=== PATIENT | female | born 1960 | race Caucasian/White ===

== ENCOUNTER → 2017-05-02 | Outpatient (CLI) | payer OTHER ==
[~2017-05-02] MED LIST: CYCLOBENZAPRINE5 M3 PO; Fioricet 325 MG1 TAB PO; KENALOG 0.1%80 GM T; LEVOTHROID SO0.05 MG PO; METFORMIN500 MG PO; OMEPRAZOLE20 M2 PO; OMEPRAZOLE40 MG PO; PIOGLITAZONE HC15 MG PO; PRILOSEC40 M1 PO; SERTRALINE HYDR25 MG PO; VITAMIN D50000 I3 PO; XANAX0.25 MG PO; ZOVIRAX400 MG PO
== END | disposition home or self-care (01) ==
LOC: MAMMO 04-05 14:20
DX: Z12.31 Encounter for screening mammogram for malignant neoplasm of breast (principal)

== ENCOUNTER → 2017-09-18 | Outpatient (CLI) | payer OTHER | END | disposition home or self-care (01) | LOC: US 10:30 | DX: M46.02 Spinal enthesopathy, cervical region (principal); M48.02 Spinal stenosis, cervical region; G24.9 Dystonia, unspecified; R10.84 Generalized abdominal pain ==

== ENCOUNTER → 2017-09-25 | Outpatient (CLI) | payer OTHER | END | disposition home or self-care (01) | LOC: NM 07:00 | DX: K82.8 Other specified diseases of gallbladder (principal) ==

== ENCOUNTER 2018-03-19 14:50 | Inpatient (IN) | payer OTHER ==
[~2018-03-19] VITALS: Ht 157.4 cm; Wt 56.3 kg
--- NOTE | ~2018-03-19 | ST ---
[place], [place] EXERCISE STRESS TEST REPORT [id number] UN[facility] #: [id number] ROOM: 521 DOCTOR: TEENA MATTHEW MD BIRTHDATE: [birth year] DOS: 03/20/2018 LEXISCAN STRESS EKG REPORT REFERRING PHYSICIAN: Dr. Kay. INDICATION: Chest pain. The patient underwent standard protocol Lexiscan stress EKG. The patient's baseline EKG is normal sinus with nonspecific ST-T-wave changes. Baseline heart rate 86 with blood pressure 110/58. The patient's peak heart rate was 117 with a blood pressure 110/54. The patient had no chest pain, no EKG changes and no arrhythmias. SUMMARY OF FINDINGS: Unremarkable Lexiscan stress EKG. Please see separate report for perfusion scan imaging or follow those results. TEENA MATTHEW MD CM:STRESS:EXERCISE STRESS TEST REPORT [id number] TEENA MATTHEW MD
--- NOTE | ~2018-03-19 | EKG ---
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
--- NOTE | ~2018-03-19 | WRIGHTHP ---
[place], [place] PATIENT HISTORY AND PHYSICAL EXAM NAME: ELI GERARDO UNIT #: [id number] ROOM: 521 DOCTOR: TOMY ALVESRL J BIRTHDATE: [birth year] DOS: 03/19/2018 HISTORY OF PRESENT ILLNESS: The patient with a past medical history of: 1. Benign essential hypertension. 2. Major depression, recurrent. 3. Postmenopausal osteoporosis. 4. Hypothyroidism. 5. GERD and esophagitis. 6. Mixed hyperlipidemia. 7. Type 2 diabetes mellitus. The patient presented to the Emergency Department at [facility] with complaints of recurrent chest pains and she was admitted and taken for a cardiac stress test by Dr. Acharya, which came back as normal and she is doing well now. REVIEW OF SYSTEMS: LUNGS: No increasing shortness of breath. GASTROINTESTINAL: No nausea, vomiting, diarrhea or constipation. CARDIOVASCULAR: Recurrent chest pains, now resolved. FAMILY HISTORY: Noncontributory. HOME MEDICATIONS: Pepcid, Zoloft, Actos, metformin, omeprazole. PHYSICAL EXAMINATION: GENERAL: Alert, oriented x 3, in no visible distress except for being anxious. VITAL SIGNS: Blood pressure 123/64, heart rate 84 beats per minute, breathing 20 times per minute, temperature 99.3 degrees Fahrenheit. IMPRESSION: 1. The patient with chest pains from uncertain etiology. Cardiac stress test normal. The patient cleared by Cardiology to be discharged to home. 2. The patient with ingrown toenail, left big toe, to be followed by Podiatry as an outpatient. 3. Laboratory data: Negative cardiac enzymes. Normal cardiac stress test. The patient to be discharged to home to follow up with PCP this week. 4. Type 2 diabetes mellitus. Blood sugar is to be monitored and treated. Her home medications including metformin and Actos continued. 5. Postmenopausal osteoporosis, treated with Fosamax, calcium and vitamin D, which were continued. 6. Gastroesophageal reflux disease and esophagitis, treated with omeprazole, famotidine. 7. Generalized anxiety disorder, major depression, recurrent, treated with Zoloft. 8. Hyperlipidemia, treated with simvastatin, which is being continued. [place], [place] PATIENT HISTORY AND PHYSICAL EXAM NAME: ELI GERARDO UNIT #: [id number] ROOM: 521 DOCTOR: RL UHITRON MD BIRTHDATE: [birth year] RL HUITRON MD CM:HISPHYS:PATIENT HISTORY AND PHYSICAL EXAMINATION 1759 1814 RL HUITRON MD 03/21/18 0140 interface
--- NOTE | ~2018-03-19 | EKG ---
[place], [place] ELECTROCARDIOGRAM REPORT NAME: ELI GERARDO UNIT #: [id number] ROOM: 521 DOCTOR: VAN DRAFT REPORT BIRTHDATE: [birth year] [facility] Test Date: 2018-03-19 Test Time: 14:53:23 Pat Name: ELI GERARDO Department: Room: 521 Gender: F [place] Hand: Sherry Bernal : 1960 Requested By: RYANN MCCRACKEN Order Number: [id number] Reading MD: Evaristo Acharya MD Measurements Intervals [place] Rate: 81 P: 41 PA: 161 QRS: 33 QRSD: 90 T: 47 QT: 377 QTc: 438 Interpretive Statements Sinus rhythm Minimal ST depression, lateral leads No previous ECG available for comparison Electronically Signed On 03-23-2018 12:04:51 PDT by Evaristo Acharya MD CM:EKGRPT:ELECTROCARDIOGRAM REPORT 1453 1204 RYANN ARAUJO DRAFT REPORT RYANN MCCRACKEN MD
--- NOTE | ~2018-03-19 | EKG ---
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
[2018-03-19 14:51] VITALS: BP 170/69
[2018-03-19 15:09] LABS: BASO % 0.4 % (0.0-1.0); EOS # 0.2 10*3/uL (0.0-0.4); EOS % 2.2 % (1.0-4.0); HEMOGLOBIN 8.1 g/dl (12.0-16.0); LYMPH # 1.8 10*3/uL (1.3-4.4); LYMPH % 26.3 % (27.0-41.0); MEAN CELL VOLUME 76.9 fl (81.0-99.0); MEAN CORPUSCULAR HGB CONC 31.2 g/dl (33.0-37.0); MEAN PLATELET VOLUME 13.3 fl (9.6-12.3); MONO # 0.6 10*3/uL (0.1-1.0); MONO % 8.6 % (3.0-9.0); NEUT # 4.2 10*3/uL (2.3-7.9); NEUT % 62.4 % (47.0-73.0); PLATELET COUNT AUTOMATED 255 10*3/uL (130-400); RED BLOOD COUNT 3.38 10*6/uL (4.10-5.10); RED CELL DISTRI WIDTH 14.8 % (0-14.5); WHITE BLOOD COUNT 6.8 10*3/uL (4.8-10.8)
[2018-03-19 15:17] LABS: ACT PARTIAL THROMBO TIME 22.1 SECONDS (20.8-31.5)
[2018-03-19 15:24] LABS: ALBUMIN 3.7 gm/dl (3.1-4.5); ALKALINE PHOSPHATASE 72 U/L (45-117); BUN 10 mg/dl (7-24); CHLORIDE 109 mmol/L (98-107); POTASSIUM 3.7 mmol/L (3.5-5.1); SGOT/AST 12 IU/L (3-35); SGPT/ALT 14 U/L (12-78); SODIUM 141 mmol/L (136-145); TOTAL PROTEIN 7.9 gm/dL (6.4-8.2)
[2018-03-19 15:25] LABS: TROPONIN I < 0.015 ng/ml (<0.045)
[2018-03-19 15:29] VITALS: BP 132/68
[2018-03-19 16:01] VITALS: BP 132/64
[2018-03-19 18:27] VITALS: BP 151/59
[2018-03-19] MEDS ORDERED: LISINOPRIL2.5 MG PO (18:44)
[2018-03-19] MEDS ORDERED: OMEPRAZOLE D/R20 MG PO (18:45)
[2018-03-19] MEDS ORDERED: SERTRALINE HYD100 MG PO (18:49)
[2018-03-19] MEDS ORDERED: ALENDRONATE SOD70 M1 PO (18:49)
[2018-03-19] MEDS ORDERED: ALOGLIPTIN25 MG PO (18:50)
[2018-03-19] MEDS ORDERED: CALCIUM CARBON600 M4 PO (18:51)
[2018-03-19] MEDS ORDERED: OYSTER SHELL C500 M4 PO (18:52)
[2018-03-19] MEDS ORDERED: VITAMIN D350000 UNIT PO (18:53)
[2018-03-19 18:54] VITALS: BP 151/59
[2018-03-19] MEDS ORDERED: LEVOTHYROXINE50 MCG PO (18:54)
[2018-03-19] MEDS ORDERED: ZANTAC 7575 M1 PO (18:55)
[2018-03-19] MEDS ORDERED: SIMVASTATIN5 MG PO (18:56)
[2018-03-20] VITALS: BP 119/62
[2018-03-20 12:00] VITALS: BP 114/65
[2018-03-20 13:15] VITALS: BP 130/63
[2018-03-20 16:00] VITALS: BP 123/64
[2018-04-10] MEDS ORDERED: ZANTAC 300300 MG PO (10:31)
== END 2018-03-20 18:30 | disposition home or self-care (01) | DRG 313 ==
LOC: ED 14:50 → 5E 17:50 → EDHOLD 17:50 → 5E 18:13
PROVIDERS: Emergency Medicine
PROC: 4A02XM4 Measurement of Cardiac Total Activity, External Approach (ICD-10-PCS; principal; 2018-03-20)
PROC: 3E073KZ Introduction of Other Diagnostic Substance into Coronary Artery, Percutaneous Approach (ICD-10-PCS; 2018-03-20)
DX: R07.9 Chest pain, unspecified (principal); F33.9 Major depressive disorder, recurrent, unspecified; E11.9 Type 2 diabetes mellitus without complications; I10 Essential (primary) hypertension; E78.00 Pure hypercholesterolemia, unspecified; F41.9 Anxiety disorder, unspecified; E03.9 Hypothyroidism, unspecified; E78.2 Mixed hyperlipidemia; M81.0 Age-related osteoporosis without current pathological fracture; K21.0 Gastro-esophageal reflux disease with esophagitis; F41.1 Generalized anxiety disorder; L60.0 Ingrowing nail; S91.209A Unspecified open wound of unspecified toe(s) with damage to nail, initial encounter; X58.XXXA Exposure to other specified factors, initial encounter; Z88.0 Allergy status to penicillin; Z79.899 Other long term (current) drug therapy; Z90.710 Acquired absence of both cervix and uterus; Z98.51 Tubal ligation status; Z82.49 Family history of ischemic heart disease and other diseases of the circulatory system; Z80.8 Family history of malignant neoplasm of other organs or systems; Y93.89 Activity, other specified; Y92.89 Other specified places as the place of occurrence of the external cause

== ENCOUNTER → 2018-06-06 | Day surgery (SDC) | payer OTHER ==
[~2018-06-06] VITALS: Ht 157.4 cm; Wt 55.8 kg
[~2018-06-06] MED LIST changes: +ALENDRONATE SOD70 M1 PO; +ALOGLIPTIN25 MG PO; +CALCIUM CARBON600 M4 PO; +LEVOTHYROXINE50 MCG PO; +LISINOPRIL2.5 MG PO; +OMEPRAZOLE D/R20 MG PO; +OYSTER SHELL C500 M4 PO; +SERTRALINE HYD100 MG PO; +SIMVASTATIN5 MG PO; +VITAMIN D350000 UNIT PO; +ZANTAC 300300 MG PO; +ZANTAC 7575 M1 PO
--- NOTE | ~2018-06-06 | O ---
[place], [place] OPERATIVE NOTE NAME: ELI GERARDO UNIT #: [id number] ROOM: DOCTOR: ADRIENNE HAYNES MD BIRTHDATE: [birth year] DOS: 06/06/2018 GASTROENDOSCOPIC REPORT INDICATION: This is a 58-year-old patient who presented with anemia, undergoing investigation. ALLERGIES: PENICILLIN. FAMILY HISTORY: Noncontributory. PAST SURGICAL HISTORY: Hysterectomy and right knee. PAST MEDICAL HISTORY: Hypothyroidism, hypertension, diabetes mellitus, and hyperlipidemia. SOCIAL HISTORY: Nonsmoker, nonalcohol consumer. PROCEDURE: Today's procedure part of investigation is EGD and colonoscopy. PREMEDICATION: Propofol. SCOPE: Olympus forward-viewing gastroscope Q10 video. REPORT: After putting the patient in the left lateral position and application of lubricant to the scope, the scope was introduced. Thereafter, under direct visualization, advanced through the length of esophagus without difficulty. Esophagus, cervical, thoracic distal within normal limits. Hiatal hernia was noticed, this approximately 2 cm. Gastric pouch was entered. Gastritis of mild degree was seen. Antral biopsy obtained. Duodenal bulb, second and third part within normal limits. GI reflexion of the scope reveals cardia to be benign. Air was suctioned out. The patient was extubated, tolerated the procedure well. IMPRESSION: Gastritis, status post antral biopsy, small hiatal hernia 2 cm. PLAN AND DISCUSSION: This upper GI tract was not defining the source of blood loss and anemia in this patient. I am going to proceed with colonoscopic examination today. INDICATION: The patient has presented with anemia, undergoing investigation. Her upper endoscopy was associated with gastritis, small hiatal hernia. PROCEDURE: Today's procedure part of investigation is colonoscopy. PREMEDICATION: Propofol. SCOPE: Olympus forward-viewing colonoscope 10L video. REPORT: After putting the patient in left lateral position and application of [place], [place] OPERATIVE NOTE NAME: ELI GERARDO Khalida UNIT #: [id number] ROOM: DOCTOR: CONCHIS HAYNES MD BIRTHDATE: [birth year] lubricant to the scope, the scope was introduced. Thereafter, under direct visualization, advanced through the length of colon without difficulty. Base of the cecum explored, appendiceal orifice identified, ileocecal valve was defined and photographed. Air was suctioned out. The patient gradually extubated, tolerated the procedure well. IMPRESSION: Normal colonoscopic examination. PLAN AND DISCUSSION: Source of anemia remains to be biggest at this time. Workup still in progress as outpatient for anemia and fortunately the patient is not on antiplatelet and anticoagulants. Thank you very much indeed for your kind referral. ADRIENNE HAYNES MD CM:OPRECORD:OPERATIVE NOTE 1020 BLADE HAYNES MD 06/06/18 1021 interface
[2018-06-06 07:20] VITALS: BP 122/70
[2018-06-06 08:57] VITALS: BP 110/62
[2018-06-06 09:12] VITALS: BP 115/56
[2018-06-06 09:27] VITALS: BP 115/42
== END | disposition home or self-care (01) ==
LOC: SDC 06-01 10:15
DX: K29.50 Unspecified chronic gastritis without bleeding (principal); K44.9 Diaphragmatic hernia without obstruction or gangrene; E03.9 Hypothyroidism, unspecified; I10 Essential (primary) hypertension; E11.9 Type 2 diabetes mellitus without complications; E78.5 Hyperlipidemia, unspecified; F41.9 Anxiety disorder, unspecified; F17.210 Nicotine dependence, cigarettes, uncomplicated; Z90.710 Acquired absence of both cervix and uterus; Z98.890 Other specified postprocedural states; Z88.0 Allergy status to penicillin; Z79.899 Other long term (current) drug therapy; Z82.49 Family history of ischemic heart disease and other diseases of the circulatory system; Z82.0 Family history of epilepsy and other diseases of the nervous system

== ENCOUNTER → 2019-06-12 | Outpatient (CLI) | payer OTHER | END | disposition home or self-care (01) | LOC: CARD 07:26 | DX: I08.1 Rheumatic disorders of both mitral and tricuspid valves (principal); R10.9 Unspecified abdominal pain; M47.816 Spondylosis without myelopathy or radiculopathy, lumbar region; Z90.710 Acquired absence of both cervix and uterus ==

== ENCOUNTER → 2019-06-19 | Outpatient (CLI) | payer OTHER ==
[2019-06-19 12:06] LABS: BASO # 0.1 10*3/uL (0.0-0.1); BASO % 0.8 % (0.0-1.0); EOS # 0.2 10*3/uL (0.0-0.4); EOS % 2.3 % (1.0-4.0); HEMATOCRIT 39.7 % (37.0-47.0); LYMPH # 2.1 10*3/uL (1.3-4.4); LYMPH % 31.9 % (27.0-41.0); MEAN CELL VOLUME 90.6 fl (81.0-99.0); MEAN CORPUSCULAR HGB 29.7 pg (27.0-31.0); MEAN CORPUSCULAR HGB CONC 32.7 g/dl (33.0-37.0); MEAN PLATELET VOLUME 11.7 fl (9.6-12.3); MONO # 0.4 10*3/uL (0.1-1.0); MONO % 6.4 % (3.0-9.0); NEUT # 3.9 10*3/uL (2.3-7.9); NEUT % 58.1 % (47.0-73.0); PLATELET COUNT AUTOMATED 190 10*3/uL (130-400); RED BLOOD COUNT 4.38 10*6/uL (4.10-5.10); WHITE BLOOD COUNT 6.6 10*3/uL (4.8-10.8)
[2019-06-19 12:33] LABS: ALBUMIN 3.9 gm/dl (3.1-4.5); BUN 11 mg/dl (7-24); CHLORIDE 110 mmol/L (98-107); CHOLESTEROL 225 mg/dL (<200); CREATININE 0.76 mg/dL (0.55-1.02); POTASSIUM 4.3 mmol/L (3.5-5.1); SGOT/AST 9 IU/L (3-35); SGPT/ALT 20 U/L (12-78); SODIUM 141 mmol/L (136-145); TRIGLYCERIDES 275 mg/dl (<150); VLDL CHOLESTEROL 55 mg/dL (6-40)
[2019-06-19 12:40] LABS: ALKALINE PHOSPHATASE 78 U/L (45-117); FREE T4 0.97 ng/dl (0.76-1.46); HDL CHOLESTEROL 51 mg/dl (40-60); LDL CHOLESTEROL 119 mg/dL (9-159); TOTAL PROTEIN 7.6 gm/dL (6.4-8.2)
[2019-06-19 12:58] LABS: VITAMIN D, 25-HYDROXY 26.5 ng/mL (30-100)
== END | disposition home or self-care (01) ==
LOC: LAB 09:45
PROVIDERS: Internal Medicine
DX: E11.9 Type 2 diabetes mellitus without complications (principal); I10 Essential (primary) hypertension; E55.9 Vitamin D deficiency, unspecified; D51.9 Vitamin B12 deficiency anemia, unspecified; D52.9 Folate deficiency anemia, unspecified; E03.9 Hypothyroidism, unspecified; R53.81 Other malaise; R79.89 Other specified abnormal findings of blood chemistry

== ENCOUNTER → 2019-10-10 | Outpatient (CLI) | payer OTHER | END | disposition home or self-care (01) | LOC: RAD 10:37 | DX: M76.892 Other specified enthesopathies of left lower limb, excluding foot (principal); M25.561 Pain in right knee ==

== ENCOUNTER → 2020-02-27 | Outpatient (CLI) | payer OTHER ==
[2020-02-27 10:32] LABS: BASO % 0.6 % (0.0-1.0); EOS # 0.1 10*3/uL (0.0-0.4); HEMATOCRIT 35.2 % (37.0-47.0); LYMPH # 1.5 10*3/uL (1.3-4.4); MEAN CELL VOLUME 90.7 fl (81.0-99.0); MEAN CORPUSCULAR HGB 30.4 pg (27.0-31.0); MEAN CORPUSCULAR HGB CONC 33.5 g/dl (33.0-37.0); MEAN PLATELET VOLUME 12.4 fl (9.6-12.3); MONO # 0.4 10*3/uL (0.1-1.0); MONO % 8.6 % (3.0-9.0); NEUT % 59.4 % (47.0-73.0); PLATELET COUNT AUTOMATED 188 10*3/uL (130-400); RED BLOOD COUNT 3.88 10*6/uL (4.10-5.10); WHITE BLOOD COUNT 5.1 10*3/uL (4.8-10.8)
[2020-02-27 10:53] LABS: ALBUMIN 3.9 gm/dl (3.1-4.5); ALKALINE PHOSPHATASE 58 U/L (45-117); BUN 10 mg/dl (7-24); CHLORIDE 110 mmol/L (98-107); CHOLESTEROL 194 mg/dL (<200); CREATININE 0.63 mg/dL (0.55-1.02); FREE T4 0.85 ng/dl (0.76-1.46); HDL CHOLESTEROL 49 mg/dl (40-60); LDL CHOLESTEROL 109 mg/dL (9-159); POTASSIUM 3.6 mmol/L (3.5-5.1); SGOT/AST 10 IU/L (3-35); SGPT/ALT 15 U/L (12-78); SODIUM 142 mmol/L (136-145); TRIGLYCERIDES 181 mg/dl (<150); VLDL CHOLESTEROL 36 mg/dL (6-40)
[2020-02-27 11:28] LABS: VITAMIN D, 25-HYDROXY 33.6 ng/mL (30-100)
== END | disposition home or self-care (01) ==
LOC: LAB 09:16
PROVIDERS: ATTEND Internal Medicine
DX: Z00.00 Encounter for general adult medical examination without abnormal findings (principal); I10 Essential (primary) hypertension; E78.2 Mixed hyperlipidemia; E11.9 Type 2 diabetes mellitus without complications; E55.9 Vitamin D deficiency, unspecified; E03.9 Hypothyroidism, unspecified

== ENCOUNTER → 2020-03-09 | Outpatient (CLI) | payer OTHER | END | disposition home or self-care (01) | LOC: MAMMO 10:00 | PROVIDERS: ATTEND Internal Medicine | DX: Z12.31 Encounter for screening mammogram for malignant neoplasm of breast (principal); N64.89 Other specified disorders of breast ==

== ENCOUNTER 2020-12-19 16:25 | Emergency (ER) | payer OTHER ==
[~2020-12-19] VITALS: Ht 157.4 cm; Wt 56.7 kg
== END 2020-12-19 18:11 | disposition home or self-care (01) ==
LOC: ED 16:25
DX: F41.0 Panic disorder [episodic paroxysmal anxiety] (principal); Z88.0 Allergy status to penicillin; Z79.899 Other long term (current) drug therapy; Z98.51 Tubal ligation status; Z90.711 Acquired absence of uterus with remaining cervical stump

== ENCOUNTER → 2021-02-08 | Outpatient (CLI) | payer OTHER | END | disposition home or self-care (01) | LOC: CARD 10:09 | PROVIDERS: ATTEND Internal Medicine | DX: R06.02 Shortness of breath (principal) ==

== ENCOUNTER → 2021-08-16 | Outpatient (CLI) | payer OTHER | END | disposition home or self-care (01) | LOC: RAD 13:23 → MAMMO 14:00 | PROVIDERS: ATTEND Internal Medicine | DX: Z12.31 Encounter for screening mammogram for malignant neoplasm of breast (principal); M81.0 Age-related osteoporosis without current pathological fracture; Z78.0 Asymptomatic menopausal state ==

== ENCOUNTER → 2021-11-18 | Outpatient (CLI) | payer OTHER | END | disposition home or self-care (01) | LOC: US 15:44 | PROVIDERS: ATTEND Internal Medicine | DX: I65.23 Occlusion and stenosis of bilateral carotid arteries (principal) ==

== ENCOUNTER → 2021-12-03 | Outpatient (CLI) | payer OTHER ==
[2021-12-03 09:34] LABS: BASO % 0.6 % (0.0-1.0); EOS # 0.1 10*3/uL (0.0-0.4); EOS % 1.6 % (1.0-4.0); HEMATOCRIT 37.3 % (37.0-47.0); LYMPH # 1.8 10*3/uL (1.3-4.4); MEAN CELL VOLUME 92.3 fl (81.0-99.0); MEAN CORPUSCULAR HGB 31.4 pg (27.0-31.0); MEAN PLATELET VOLUME 12.4 fl (9.6-12.3); MONO # 0.6 10*3/uL (0.1-1.0); MONO % 8.4 % (3.0-9.0); NEUT # 4.2 10*3/uL (2.3-7.9); PLATELET COUNT AUTOMATED 186 10*3/uL (130-400); RED BLOOD COUNT 4.04 10*6/uL (4.10-5.10); RED CELL DISTRI WIDTH 12.9 % (0-14.5); WHITE BLOOD COUNT 6.8 10*3/uL (4.8-10.8)
[2021-12-03 10:14] LABS: ALKALINE PHOSPHATASE 65 U/L (45-117); BUN 12 mg/dl (7-24); CHLORIDE 111 mmol/L (98-107); CHOLESTEROL 153 mg/dL (<200); CREATININE 0.69 mg/dL (0.55-1.02); LDL CHOLESTEROL 59 mg/dL (9-159); POTASSIUM 3.5 mmol/L (3.5-5.1); SGOT/AST 11 IU/L (3-35); SGPT/ALT 14 U/L (12-78); SODIUM 142 mmol/L (136-145); T3 UPTAKE 33 % (31-39); TOTAL PROTEIN 6.9 gm/dL (6.4-8.2); TRIGLYCERIDES 188 mg/dl (<150)
[2021-12-03 10:15] LABS: FREE T4 1.17 ng/dl (0.76-1.46)
[2021-12-03 10:20] LABS: THYROID STIM HORMONE (HS) 0.117 uIU/ml (0.358-4.75)
[2021-12-03 10:21] LABS: VITAMIN D, 25-HYDROXY 39.1 ng/mL (30-100)
== END | disposition home or self-care (01) ==
LOC: LAB 09:06
PROVIDERS: ATTEND Internal Medicine
DX: Z13.1 Encounter for screening for diabetes mellitus (principal); R73.09 Other abnormal glucose; I10 Essential (primary) hypertension; E11.9 Type 2 diabetes mellitus without complications; Z13.0 Encounter for screening for diseases of the blood and blood-forming organs and certain disorders involving the immune mechanism; E11.65 Type 2 diabetes mellitus with hyperglycemia; E03.9 Hypothyroidism, unspecified; E55.9 Vitamin D deficiency, unspecified; Z13.21 Encounter for screening for nutritional disorder; Z13.220 Encounter for screening for lipoid disorders; Z13.228 Encounter for screening for other metabolic disorders; Z13.29 Encounter for screening for other suspected endocrine disorder; Z13.6 Encounter for screening for cardiovascular disorders; Z13.89 Encounter for screening for other disorder; Z13.9 Encounter for screening, unspecified

== ENCOUNTER → 2022-01-03 | Day surgery (SDC) | payer OTHER ==
[~2022-01-03] VITALS: Ht 157.4 cm; Wt 57.2 kg
[~2022-01-03] MED LIST changes: +ACTOS30 M1 PO; +BUSPAR5 MG PO; +CITALOPRAM10 MG PO; +COLACE100 MG PO; +IRON325 M1 PO; -LEVOTHYROXINE50 MCG PO; +LEVOTHYROXINE75 MC1 PO; +SIMVASTATIN20 MG PO; -SIMVASTATIN5 MG PO; +TRAD5TAB1 PO; +TRAZODONE50 MG PO; +VITAMIN D350 MC3 PO; -VITAMIN D350000 UNIT PO
[2022-01-03 07:53] VITALS: BP 111/52
[2022-01-03 08:08] VITALS: BP 113/57
[2022-01-03 08:23] VITALS: BP 128/67
== END | disposition home or self-care (01) ==
LOC: SDC 12-30 08:45
PROVIDERS: ATTEND Surgery
DX: Z12.11 Encounter for screening for malignant neoplasm of colon (principal); K57.30 Diverticulosis of large intestine without perforation or abscess without bleeding; E11.9 Type 2 diabetes mellitus without complications; K21.9 Gastro-esophageal reflux disease without esophagitis; F41.9 Anxiety disorder, unspecified; E78.00 Pure hypercholesterolemia, unspecified; Z90.710 Acquired absence of both cervix and uterus; Z79.899 Other long term (current) drug therapy

== ENCOUNTER → 2022-03-18 | Outpatient (CLI) | payer OTHER ==
[2022-03-18 12:40] LABS: FREE T4 1.4 ng/dl (0.76-1.46)
[2022-03-18 12:46] LABS: THYROID STIM HORMONE (HS) 0.112 uIU/ml (0.358-4.75)
== END | disposition home or self-care (01) ==
LOC: LAB 12:02
PROVIDERS: ATTEND Internal Medicine
DX: E03.9 Hypothyroidism, unspecified (principal); R73.09 Other abnormal glucose

== ENCOUNTER → 2023-05-19 | Outpatient (CLI) | payer OTHER ==
[~2023-05-19] MED LIST changes: +BUSPIRONE10 MG PO; +FOSAMAX70 M1 PO; +LISINOPRIL5 MG PO; +METFORMIN HYD1000 MG PO; +NATURE'S BLEND500 M6 PO; +OMEPRAZOLE MAGN20 M2 PO; +TRULICITY0.75 MG/0. SC
[2023-05-19 10:31] LABS: BASO % 0.4 % (0.0-1.0); EOS % 0.6 % (1.0-4.0); HEMATOCRIT 39.3 % (37.0-47.0); LYMPH # 2.1 10*3/uL (1.3-4.4); LYMPH % 29.5 % (27.0-41.0); MEAN CELL VOLUME 91.4 fl (81.0-99.0); MEAN CORPUSCULAR HGB 30.5 pg (27.0-31.0); MEAN CORPUSCULAR HGB CONC 33.3 g/dl (33.0-37.0); MEAN PLATELET VOLUME 12.2 fl (9.6-12.3); MONO # 0.6 10*3/uL (0.1-1.0); MONO % 8.1 % (3.0-9.0); NEUT # 4.2 10*3/uL (2.3-7.9); PLATELET COUNT AUTOMATED 224 10*3/uL (130-400); RED CELL DISTRI WIDTH 12.1 % (0-14.5)
[2023-05-19 11:00] LABS: ALKALINE PHOSPHATASE 86 U/L (46-116); BUN 11 mg/dl (9-23); CHLORIDE 105 mmol/L (98-107); CHOLESTEROL 120 mg/dL (<200); LDL CHOLESTEROL 49 mg/dL (9-159); POTASSIUM 4.3 mmol/L (3.4-5.1); SGPT/ALT 16 U/L (5-49); TOTAL PROTEIN 7.3 gm/dL (6.0-8.0); TRIGLYCERIDES 139 mg/dl (<150)
== END | disposition home or self-care (01) ==
LOC: LAB 10:08
PROVIDERS: ATTEND Internal Medicine
DX: Z13.0 Encounter for screening for diseases of the blood and blood-forming organs and certain disorders involving the immune mechanism (principal); Z13.1 Encounter for screening for diabetes mellitus; Z13.21 Encounter for screening for nutritional disorder; Z13.220 Encounter for screening for lipoid disorders; Z13.228 Encounter for screening for other metabolic disorders; Z13.29 Encounter for screening for other suspected endocrine disorder; Z13.6 Encounter for screening for cardiovascular disorders; Z13.89 Encounter for screening for other disorder; Z13.9 Encounter for screening, unspecified; I10 Essential (primary) hypertension; E11.65 Type 2 diabetes mellitus with hyperglycemia; E55.9 Vitamin D deficiency, unspecified; E03.9 Hypothyroidism, unspecified

== ENCOUNTER → 2023-06-20 | Outpatient (CLI) | payer OTHER | END | disposition home or self-care (01) | LOC: MAMMO 06-05 14:00 | PROVIDERS: ATTEND Internal Medicine | DX: Z12.31 Encounter for screening mammogram for malignant neoplasm of breast (principal) ==

== ENCOUNTER → 2024-02-14 | Outpatient (CLI) | payer OTHER ==
[~2024-02-14] MED LIST changes: +IOHEXOL 350 MG/ML 100 ML VIAL IV ONE; +SODIUM CHLORIDE 0.9% 100 ML BAG IV ONE
== END | disposition home or self-care (01) ==
LOC: CT 00:35
PROVIDERS: ATTEND Internal Medicine
DX: Z13.0 Encounter for screening for diseases of the blood and blood-forming organs and certain disorders involving the immune mechanism (principal); I73.9 Peripheral vascular disease, unspecified

== ENCOUNTER → 2024-08-17 | Outpatient (CLI) | payer OTHER ==
[~2024-08-17] MED LIST changes: -IOHEXOL 350 MG/ML 100 ML VIAL IV ONE; -SODIUM CHLORIDE 0.9% 100 ML BAG IV ONE
[2024-08-17 10:22] LABS: BASO % 0.5 % (0.0-1.0); EOS # 0.1 10*3/uL (0.0-0.4); HEMATOCRIT 40.6 % (37.0-47.0); MEAN CELL VOLUME 89.6 fl (81.0-99.0); MEAN CORPUSCULAR HGB 29.6 pg (27.0-31.0); MEAN PLATELET VOLUME 12.2 fl (9.6-12.3); MONO # 0.6 10*3/uL (0.1-1.0); MONO % 7.5 % (3.0-9.0); NEUT # 4.5 10*3/uL (2.3-7.9); NEUT % 56.4 % (47.0-73.0); PLATELET COUNT AUTOMATED 224 10*3/uL (130-400); RED BLOOD COUNT 4.53 10*6/uL (4.10-5.10); RED CELL DISTRI WIDTH 12.9 % (0-14.5); WHITE BLOOD COUNT 7.9 10*3/uL (4.8-10.8)
[2024-08-17 10:49] LABS: ALKALINE PHOSPHATASE 73 U/L (46-116); BUN 21 mg/dl (9-23); CHLORIDE 102 mmol/L (98-107); CHOLESTEROL 144 mg/dL (<200); LDL CHOLESTEROL 68 mg/dL (9-159); POTASSIUM 4.3 mmol/L (3.4-5.1); SGPT/ALT 15 U/L (5-49); TOTAL PROTEIN 7.2 gm/dL (6.0-8.0); TRIGLYCERIDES 137 mg/dl (<150)
[2024-08-17 11:25] LABS: VITAMIN D, 25-HYDROXY 61.8 ng/mL (30-100)
== END | disposition home or self-care (01) ==
LOC: LAB 10:02
PROVIDERS: ATTEND Internal Medicine
DX: I10 Essential (primary) hypertension (principal); E11.65 Type 2 diabetes mellitus with hyperglycemia; D64.9 Anemia, unspecified; E78.2 Mixed hyperlipidemia; M81.0 Age-related osteoporosis without current pathological fracture; E55.9 Vitamin D deficiency, unspecified; E03.9 Hypothyroidism, unspecified; D51.9 Vitamin B12 deficiency anemia, unspecified; I73.9 Peripheral vascular disease, unspecified; R53.83 Other fatigue

== ENCOUNTER → 2025-03-04 | Outpatient (CLI) | payer OTHER, MEDICAID | END | disposition home or self-care (01) | LOC: US 09:56 | PROVIDERS: ATTEND Internal Medicine | DX: N28.1 Cyst of kidney, acquired (principal); N28.89 Other specified disorders of kidney and ureter; N18.31 Chronic kidney disease, stage 3a ==